=== PATIENT | male | born 1990 | race African-American/Black ===

== ENCOUNTER 2016-11-15 05:41 | Emergency (ER) | payer SELFPAY ==
[~2016-11-15] VITALS: Ht 182.9 cm; Wt 68.0 kg
[2016-11-15] MEDS ORDERED: ONDANSETRON HCL 4MG/2ML VIAL IV STA (06:09)
[2016-11-15] MEDS ORDERED: SODIUM CHLORIDE 0.9% 1,000 ML IV ONE (06:09)
[2016-11-15] MEDS ORDERED: MORPHINE SULFATE 4 MG/ML CPJ (NOT FOR IM USE) IV STA (06:09)
[2016-11-15] MEDS ORDERED: CEFAZOLIN 1000MG PREMIX 50 ML IV ONE (06:15)
[2016-11-15] MEDS ORDERED: TETANUS, DIPHTHERIA, PERTUSSIS VAC/PF 0.5ML (>7YR OLD) IM ONE (06:15)
[2016-11-15 06:58] LABS: BASOPHILS % 0.5 % (0.0-2.0); EOSINOPHILS % 0.5 % (0.0-5.0); HEMATOCRIT. 40.3 % (42.0-52.0); HEMOGLOBIN. 13.6 g/dL (14.0-18.0); LYMPHOCYTES % 16.2 % (20.0-50.0); MEAN CORPUSCULAR HEMOGLOBIN 29.1 pg (28.0-32.0); MEAN CORPUSCULAR VOLUME 85.8 fL (80.0-94.0); MEAN PLATELET VOLUME 9.5 fl (7.4-10.4); MONOCYTES % 6.4 % (2.0-8.0); NEUTROPHILS % 76.4 % (40.0-76.0); PLATELET 149 x1000/uL (130-400); RED BLOOD CELL COUNT 4.69 mill/uL (4.7-6.1); RED CELL DISTRIBUTION WIDTH 14.3 % (11.6-14.6)
[2016-11-15 07:02] LABS: INR 1.1; PROTHROMBIN TIME 11.5 sec (9.4-11.6)
[2016-11-15 07:09] LABS: CARBON DIOXIDE 28 mEq/L (21-32); CHLORIDE 105 mEq/L (98-107)
[2016-11-15] MEDS ORDERED: MORPHINE SULFATE 4 MG/ML CPJ (NOT FOR IM USE) IV ONE (07:30)
[2016-11-15 10:44] VITALS: BP 118/59
[2016-11-15] MEDS ORDERED: SODIUM CHLORIDE 0.9% 10ML VIAL ONE (14:06)
[2016-11-15] MEDS ORDERED: IOHEXOL-350 100 ML BOTTLE ONE (14:06)
== END 2016-11-15 11:00 | disposition short-term general hospital (02) ==
LOC: ER 05:41
DX: S82.391A Other fracture of lower end of right tibia, initial encounter for closed fracture (principal); S91.001A Unspecified open wound, right ankle, initial encounter; W34.09XA Accidental discharge from other specified firearms, initial encounter; Y93.89 Activity, other specified; Y92.89 Other specified places as the place of occurrence of the external cause; Y99.8 Other external cause status
CPT/HCPCS: 36415; 71010; 72191; 73590; 73610; 73706; 80053; 85025; 85610; 90471; 90715; 93005; 96365; 96375; 96376; 99285; A4216; J0690; J2270; J2405; J7030; J7040; Q9967; Z7610

== ENCOUNTER 2022-12-25 15:55 | Emergency (ER) | payer OTHER ==
[~2022-12-25] VITALS: Ht 170.2 cm; Wt 100.0 kg
[2022-12-25 16:10] VITALS: O2SAT 98
[2022-12-25] MEDS ORDERED: SODIUM CHLORIDE 0.9% 1,000 ML IV ONE (16:15)
[2022-12-25 17:24] LABS: BASOPHILS % 0.4 % (0.0-2.0); DIFFERENTIAL COMMENT 0; EOSINOPHILS % 0.1 % (0.0-5.0); HEMATOCRIT. 46.4 % (42.0-52.0); HEMOGLOBIN. 15.4 g/dL (14.0-18.0); LYMPHOCYTES % 9.1 % (20.0-50.0); MEAN CORPUSCULAR HEMOGLOBIN 28.1 pg (28.0-32.0); MEAN CORPUSCULAR HGB CONC 33.2 g/dL (31.0-37.0); MEAN CORPUSCULAR VOLUME 84.4 fL (80.0-94.0); MEAN PLATELET VOLUME 9.2 fl (7.4-10.4); MONOCYTES % 7.6 % (2.0-8.0); NEUTROPHILS % 82.8 % (40.0-76.0); PLATELET 193 x1000/uL (130-400); RED BLOOD CELL COUNT 5.49 mill/uL (4.7-6.1); RED CELL DISTRIBUTION WIDTH 15.3 % (11.6-14.6)
[2022-12-25 17:35] LABS: CHLORIDE 95 mEq/L (98-107); INDEX HEMOLYSI 3 (1-3); INDEX ICTERIC 1 (1-4); INDEX LIPEMIC 1 (1-3); POTASSIUM 3.7 mEq/L (3.5-5.1); SODIUM 131 mEq/L (136-145)
[2022-12-25 17:41] LABS: CARBON DIOXIDE 31 mEq/L (21-32); CREATININE 1.4 mg/dL (0.6-1.3); ETHANOL BLOOD < 10 mg/dL (<10); GLUCOSE 79 mg/dL (70-105); UREA NITROGEN BLOOD 17 mg/dL (7-21)
[2022-12-25 17:58] LABS: CALCIUM 8.6 mg/dL (8.5-10.1)
[2022-12-25 22:22] LABS: *AMPHETAMINES SCREEN URINE PRESUMTIVE POSITIVE (NEGATIVE); *BARBITURATES SCREEN URINE NEGATIVE (NEGATIVE); *BENZODIAZEPINES SCREEN URINE NEGATIVE (NEGATIVE); *COCAINE SCREEN URINE NEGATIVE (NEGATIVE); CANNABINOID URINE SCREEN PRESUMTIVE POSITIVE (NEGATIVE); ECSTASY MDMA SCREEN URINE CONF.TEST INDICATED (NEGATIVE); OPIATES URINE SCREEN NEGATIVE (NEGATIVE); PHENCYCLIDINE URINE SCREEN NEGATIVE (NEGATIVE)
[2022-12-26 10:27] VITALS: BP 124/68; PULSE 70; RESP 16; TEMP 97.6
== END 2022-12-26 10:33 | disposition home or self-care (01) ==
LOC: ER 15:55
DX: T43.651A Poisoning by methamphetamines accidental (unintentional), initial encounter (principal); T43.641A Poisoning by ecstasy, accidental (unintentional), initial encounter; J45.909 Unspecified asthma, uncomplicated; Y92.9 Unspecified place or not applicable
CPT/HCPCS: 80305; 80048; 80320; 85025; 36415; 96360; 96361; 99283; J7030; Z7610 ×2; G0480